=== PATIENT | female | born 1955 | race Caucasian/White ===

== ENCOUNTER 2025-01-26 12:43 | Day surgery (SDC) | payer MEDICARE, MEDICAID ==
--- NOTE | 2025-01-19 15:54 | ELECTROCARDIOGRAPH REPORT ---
[facility] Test Date: 2025-01-19 Test Time: 15:50:08 Pat Name: DAVID HEARD Department: [facility]-PRE-OP Patient ID: [facility]-[id number] Room: Gender: F Universal Grinder Tool: REGIS : 1955 Requested By: JEWEL CLINTON Order Number: [id number] Reading MD: Dr. Forrest Fuller Measurements Intervals [place] Rate: 74 P: -15 CO: 128 QRS: 6 QRSD: 87 T: -2 QT: 409 QTc: 454 Interpretive Statements Sinus rhythm Borderline T abnormalities, inferior leads Electronically Signed On 01-22-2025 8:13:[address] Forrest Fuller Please click the below link to view image of tracing.
[2025-01-19 16:13] LABS: BASOPHILS % (AUTO) 0.5 % (0-1); EOSINOPHILS # (AUTO) 0.1 X10'3 (0-0.9); MEAN CORPUSCULAR HGB CONC 33.7 g/dL (33.0-36.5)
[2025-01-19 16:14] LABS: LYMPHOCYTES # (AUTO) 1.8 X10'3 (1.1-4.8); LYMPHOCYTES % (AUTO) 21.1 % (21-51); MEAN CORPUSCULAR HEMOGLOBIN 29.7 PG (27.0-31.0); MEAN CORPUSCULAR VOLUME 88.3 FL (78-98); MEAN PLATELET VOLUME 7.6 FL (7.4-10.4); MONOCYTES # (AUTO) 0.6 X10'3 (0-0.9); MONOCYTES % (AUTO) 6.6 % (2-12); NEUTROPHILS # (AUTO) 6.2 X10'3 (1.8-7.7); NEUTROPHILS % (AUTO) 70.8 % (42-75); PRE OP HEMATOCRIT 25.8 % (35.0-45.0); PRE OP PLATELET COUNT 321 X10'3 (140-440); PRE OP WHITE BLOOD COUNT 8.7 10'3 (4.8-10.8); RED BLOOD COUNT 2.93 X10'6 (4.20-5.60); RED CELL DISTRIBUTION WIDTH 16.1 % (11.5-14.5)
[2025-01-19 16:16] LABS: PRE OP HEMOGLOBIN 8.7 g/dL (12.0-16.0)
[2025-01-19 16:25] LABS: ALBUMIN 3.2 G/DL (3.4-5.0); ALBUMIN/GLOBULIN RATIO 0.8 (1.1-1.5); ALKALINE PHOSPHATASE 84 IU/L (46-116); BLOOD UREA NITROGEN 21 MG/DL (7-18); BUN/CREATININE RATIO 16.7 (10.0-20.0); CALCIUM 8.6 MG/DL (8.5-10.1); CHLORIDE 103 MMOL/L (99-107); CREATININE 1.26 MG/DL (0.40-0.90); PRE OP ALT 11 U/L (30-65); PRE OP ANION GAP 10 (8-16); PRE OP AST 21 U/L (10-37); PRE OP BILIRUB, TOTAL 0.3 MG/DL (0.0-1.0); PRE OP GLUCOSE 92 MG/DL (70-104); PRE OP POTASSIUM 3.9 MMOL/L (3.4-5.1); PRE OP SODIUM 139 MMOL/L (135-145); TOTAL CARBON DIOXIDE 25.6 MMOL/L (24-32); TOTAL PROTEIN 7.1 G/DL (6.4-8.2); eGFR 42 ML/MIN
[2025-01-26] VITALS (10 sets, daily range): BP systolic 107–176; BP diastolic 55–85; PULSE 67–80; RESP 11–16; TEMP 98.3; O2SAT 94–100
[~2025-01-26] VITALS: Ht 167.6 cm; Wt 59.0 kg
[~2025-01-26 12:43] MED LIST: CALC500T63 PO; CHOL100046 PO; CITA-178 PO; FERR-106 PO; LEVO50TA8 PO; MAGN400T29 PO; PANT20TA18 PO; ceFAZolin 2gm/dext,iso 50mL 50 ML IV ONE; famotidine 20mg tablet PO ONE; ringers solution, lacted 1,000 ML IV SCH
[2025-01-26] MEDS ORDERED: BUPIVAcaine 2.5mg/ml inj 50ml vial (contains preservative) ONE (16:55)
[2025-01-26] MEDS ORDERED: LIDOcaine 1% 30ml preserv. free vial ONE (16:55)
[2025-01-26] MEDS ORDERED: BUPIVACAINE liposomal/PF 13.3 MG/ML 10mL vial IM ONE (16:56)
[2025-01-26] MEDS ORDERED: sevoflurane 250ml liquid IH ONE (17:00)
[2025-01-26] MEDS ORDERED: fentaNYL/PF 50MCG/1 ML 2ML syringe ONE (17:12)
[2025-01-26] MEDS ORDERED: midazolam 1 mg/ML 2ml injection ONE (17:12)
[2025-01-26] MEDS ORDERED: propofol inj 20 ML IV ONE (17:18)
[2025-01-26] MEDS ORDERED: rocuronium 10mg/ml inj IV ONE ×2 (17:18→17:23)
[2025-01-26] MEDS ORDERED: dexamethasone sod phosphate 4mg/ml inj. ONE (17:20)
[2025-01-26] MEDS ORDERED: ondansetron/PF 4mg/2ml inj ONE ×2 (17:21→17:23)
[2025-01-26] MEDS ORDERED: ePHEDrine 50MG/ML INJ. ONE (17:22)
[2025-01-26] MEDS ORDERED: acetaminophen 1,000mg/100ml IV 100 ML IV ONE (17:30)
[2025-01-26] MEDS ORDERED: labetalol 20mg/4ml (5mg/ml) syringe IV ONE (17:38)
[2025-01-26] MEDS ORDERED: morphine 4 MG/ML inj SYRINge IV PRN (17:40)
[2025-01-26] MEDS ORDERED: labetalol 20mg/4ml (5mg/ml) syringe IV PRN (17:40)
[2025-01-26] MEDS ORDERED: hydrALAZINE 20mg/ml inj. IV PRN (17:40)
[2025-01-26] MEDS ORDERED: ondansetron/PF 4mg/2ml inj IV PRN (17:40)
[2025-01-26] MEDS ORDERED: morphine 2 MG/ML inj. syringe IV PRN (17:40)
[2025-01-26] MEDS ORDERED: fentaNYL/PF 50MCG/1 ML 2ML syringe IV PRN ×2 (17:40)
[2025-01-26] MEDS ORDERED: ringers solution, lacted 1,000 ML IV SCH (17:40)
--- NOTE | 2025-01-26 18:46 | OPERATIVE REPORT ---
Operative Report Providers to CC CC: COOPER CLINTON MD ~ Date of Procedure: Jan 26, 2025 Pre-Operative Diagnosis: Incisional hernia Post-Operative Diagnosis 6 x 4 cm incisional hernia 2 cm incisional hernia Procedure Performed Robotic assisted, laparoscopic 8 cm incisional hernia repair with mesh Bilateral transversus abdominis plane nerve blocks by injection using 266 mg of Exparel Surgeon: Cooper Clinton MD FACS Medicaid Service Coordinator None Anesthesiologist: Anastacio Walter Type of Anesthesia: General Findings: Lower midline fascial defect measuring 6 x 4 cm Supraumbilical 2 cm fascial defect Total hernia repair 8 cm incisional Wound class I Complications None Prosthetics\Implants used: 10 x 15 cm coated polyester mesh Estimated Blood Loss: Minimal Specimen Removed: None Description of Procedure: Patient was brought to the operating room and identified by the nursing staff and the attending physician. Patient was placed supine and general anesthesia was induced. Patient's abdomen was prepped and draped in the standard sterile fashion. Preoperative antibiotics were given. Veress needle technique was used at navarro's point in the abdomen was insufflated without incident. 12 mm optical trocar was used to gain access to the abdomen under laparoscopic visualization. Abdomen was surveyed. There was omentum herniated through to obvious fascial defects; one in the lower midline (larger) and one in the upper midline (much smaller). 8.5 mm robotic trocars were then placed in the left epigastrium and right upper quadrant under laparoscopic visualization. Patient was placed in Trendelenburg position and the de Elie robotic arm was docked to the patient. Instruments were guided into the abdomen under laparoscopic visualization. Omentum herniated through the upper, smaller defect was mobilized and reduced. Similar reduction of herniated omentum was accomplished in the lower midline. Fascial defects were measured. The lower midline defect was associated with a diastasis of the rectus muscles. The hernia defect measured 6 x 4 cm and the defect in the epigastrium measured 2 cm in diameter. Total defect diameter measured 8 cm between the two of them. Lower midline defect and diastasis was reapproximated with a long absorbing 0 V lock suture. Good reapproximation of the rectus muscles and closure of the defect was accomplished. A 10 x 15 cm coated polyester mesh was centered at the repair and anchored to the anterior abdominal wall with a circumferential running absorbable V lock suture. Mesh laid without wrinkles or folds and had good circumferential coverage. The epigastric defect was closed primarily with 0, nonabsorbable V lock suture. This easily reapproximated without tension. Bilateral transversus abdominis plane nerve blocks by injection were then placed using a combination of Marcaine and 266 mg of Exparel. [place] were retrieved and ports removed after the de Elie robotic arm was undocked. The 12 mm port was removed and its fascia closed percutaneously with 0 Vicryl suture. Skin was closed at all sites with 4-0 Monocryl sutures in a subcuticular fashion. Sterile dressings were applied. Patient was awakened and taken to the postanest hesia care unit in stable condition. Counts repoted as correct: Yes COOPER CLINTON MD Jan 26, 2025 18:46
[2025-01-26] MEDS: oxyCODONE/APAP 5-325mg tablet PO PRN (19:25)
== END 2025-01-26 19:45 | disposition home or self-care (01) ==
LOC: PAS 12:43
PROVIDERS: ATTEND Surgery
DX: K43.2 Incisional hernia without obstruction or gangrene (principal); E03.9 Hypothyroidism, unspecified; K21.9 Gastro-esophageal reflux disease without esophagitis; D64.9 Anemia, unspecified; M19.90 Unspecified osteoarthritis, unspecified site; F41.8 Other specified anxiety disorders; Z79.899 Other long term (current) drug therapy; Z98.890 Other specified postprocedural states
CPT/HCPCS: 36415; 49593; 64488; 80053; 82948; 85025; 93005; J0131; J0666; J1100; J2003; J2250; J2405; J2704; J3010; J3490; J7120; Z7512; Z7610; A4215; A4618; C1781